=== PATIENT | male | born 2005 | race Caucasian/White ===

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

== ENCOUNTER → 2024-09-24 | Outpatient (CLI) | payer OTHER ==
[~2024-09-24] MED LIST changes: +ALBU90OI INH; +HYDHCL25 PO
[2024-09-24 18:20] LABS: Chlamydia Trachomatis Urine NOT DETECTED (NOT DETECT); Neisseria Gonorrhoea Urine NOT DETECTED (NOT DETECT)
== END ==
LOC: LAB 14:02 → LAB SHORT 14:02
PROVIDERS: Chiropractor
DX: N50.89 Other specified disorders of the male genital organs (principal)
CPT/HCPCS: 87491; 87591